=== PATIENT | female | born 1975 | race Caucasian/White ===

== ENCOUNTER → 2023-12-04 07:54 | Outpatient (BNVA) | payer OTHER, SELFPAY | PROVIDERS: Visit Provider Nurse Practitioner Family | DX: J02.9 Acute pharyngitis, unspecified (principal) | CPT/HCPCS: 87400; 87880 ==

== ENCOUNTER 2023-12-08 08:00 | Emergency (ER) | payer OTHER, SELFPAY ==
[2023-12-08 08:04] VITALS: BP 187/87; PULSE 87; RESP 18; TEMP 36.4; O2SAT 96; BMI 39.5
--- NOTE | 2023-12-08 08:18 | ED_ITS ---
HPI - Dizziness 2 General: Chief Complaint: Dizziness Stated Complaint: Dizzy , lighthead Time Seen by Provider: 12/08/23 08:03 Source: patient Mode of arrival: ambulatory Limitations: no limitations History of Present Illness: HPI Narrative: 48-year-old female states she was diagno sed with strep on Monday she had no antibiotics she states she has been having some general malaise and lightheadedness since then. She denies any vomiting she had some slight diarrhea she denies any chest pain. She denies any fevers. Associated symptoms: Reports malaise; Denies chest pain, chills, headache(s), nausea or vomiting Review of Systems 2 Const: Reports: malaise; Denies: fever(s), chills or body aches ENMT: Reports: throat pain; Denies: dental pain Card: Denies: chest pain Resp: Denies: dyspnea GI: Denies: abdominal pain, nausea, vomiting or diarrhea Musc: Denies: neck pain or back pain Skin/Breast: Denies: rash Neuro: Reports: dizziness; Denies: headache(s) Physical Exam 2 Const: COMMON NORMALS: no acute distress, patient oriented x3 and healthy appearing HENMT: COMMON NORMALS: normocephalic and atraumatic HEAD & SCALP: n ormocephalic and atraumatic OTHER: Posterior pharynx erythema no abscess formation handles her secretions well Eye: COMMON NORMALS: conjunctivae normal CONJUNCTIVA: Yes conjunctivae normal Neck/C-Spine: COMMON NORMALS: full ROM and supple Chest: COMMONS NORMALS: normal inspection of the chest and normal palpation of entire chest wall Resp: COMMON NORMALS: normal respiratory effort, No retractions, No use of accessory muscles and clear to auscultation bilaterally AUSCULTATION: clear to auscultation bilaterally Cardio: COMMON NORMALS: regular rate, regular rhythm and No murmurs present (Cardio) RATE: regular rate RHYTHM: regular rhythm Extremity: COMMON NORMALS: normal to inspection and full ROM Neuro: COMMON NORMALS: patient oriented x3, moves all extremities and no focal motor deficits Psych: COMMON NORMALS: mental status grossly normal, Normal thought process present and cooperative THOUGHT PROCESS: Normal thought process present Skin: COMMON NORMALS: no rashes or lesions noted and no wounds GENERAL SKIN EXAM: no rashes or lesions noted Course 2 Vital Signs: Vital signs: Vital Signs Temperature 97.6 F 12/08/23 09:24 Pulse Rate 87 12/08/23 09:24 Respiratory Rate 18 12/08/23 09:24 Blood Pressure 138/92 12/08/23 09:24 Pulse Oximetry 96 12/08/23 09:24 Oxygen Delivery Me thod Room Air 12/08/23 08:04 MDM - Dizziness Medical Decision Making Patient presents here with lightheadedness malaise patient's blood work here is all normal she is recently diagnosed strep she is to continue her antibiotics and give her dose of Decadron IV fluids here she had some mild hypertension here will start on Norvasc she is follow-up with PCP and 4 to 7 days and return if worsening she understands agrees plan Medical Records I reviewed the patient's medical records. Lab Data I reviewed the patient's lab results. 12/08/23 08:22 12/08/23 08:22 Laboratory Results WBC 5.19 10^3/uL (3.29-11.43) 12/08/23 08:22 RBC 4.99 10^6/uL (3.85-5.65) 12/08/23 08:22 Hgb 14.90 g/dL (11.27-16.99) 12/08/23 08:22 Hct 44.8 % (36-47) 12/08/23 08:22 MCV 89.8 fl (85-98) 12/08/23 08:22 MCH 29.9 pg (27-33) 12/08/23 08:22 MCHC 33.3 g/dL (30-55) 12/08/23 08:22 RDW 12.4 % (12.1-15.1) 12/08/23 08:22 Plt Count 213 10^3/cmm (157-399) 12/08/23 08:22 MPV 10.3 fL (7.4-10.4) 12/08/23 08:22 Neut % (Auto) 54.6 % 12/08/23 08:22 Lymph % (Auto) 30.1 % 12/08/23 08:22 [place] % (Auto) 8.1 % 12/08/23 08:22 Eos % (Auto) 6.0 % 12/08/23 08:22 Baso % (Auto) 1.0 % 12/08/23 08:22 Neut # (Auto) 2.84 10^3/uL (1.8-7.7) 12/08/23 08:22 Lymph # (Auto) 1.6 10^3/uL (0.8-4.8) 12/08/23 08:22 [place] # (Auto) 0.4 10^3/uL (0.2-0.9) 12/08/23 08:22 Eos # (Auto) 0.3 10^3/uL (0.0-0.8) 12/08/23 08:22 Baso # (Auto) 0.1 10^3/uL (0.0-0.1) 12/08/23 08:22 Nucleated RBC % (auto) 0 % 12/08/23 08:22 Nucleated RBCs # 0.0 /100WBC 12/08/23 08:22 Sodium 139 mmol/L (136-145) 12/08/23 08:22 Potassium 4.4 mmol/L (3.5-5.1) 12/08/23 08:22 Chloride 104 mmol/L (98-107) 12/08/23 08:22 Carbon Dioxide 23 mmol/L (22-29) 12/08/23 08:22 Anion Gap 16.4 (5-19) 12/08/23 08:22 BUN 12 mg/dL (6-20) 12/08/23 08:22 Creatinine 0.8 mg/dL (0.5-0.9) 12/08/23 08:22 GFR Calculation 77.2 mL/min (90-130) L 12/08/23 08:22 Glucose 103 mg/dL (65-115) 12/08/23 08:22 Calculated Osmolality 288 mOsm/kg (285-295) 12/08/23 08:22 Calcium 8.6 mg/dL (8.5-10.5) 12/08/23 08:22 Total Bilirubin 0.4 mg/dL (0.15-1.2) 12/08/23 08:22 AST 16 U/L (0-32) 12/08/23 08:22 ALT 11 U/L (0-33) 12/08/23 08:22 Alkaline Phosphatase 108 U/L (35-105) H 12/08/23 08:22 Total Protein 7.9 g/dL (6.6-8.7) 12/08/23 08:22 Albumin 4.1 g/dL (3.5-5.2) 12/08/23 08:22 Globulin 3.8 g/dL (1.3-4.6) 12/08/23 08:22 TSH 2.78 uIU/mL (0.27-4.20) 12/08/23 08:22 No radiology studies performed this visit Discharge Plan Discharge Patient Disposition: Home Clinical Impression: Hypertension, Dizziness, Strep throat Condition: Stable Prescriptions: New ondansetron 4 mg tablet,disintegrating 4 mg PO Q6H PRN (Reason: nausea and vomiting) Qty: 14 0RF Norvasc 5 mg tablet 5 mg PO DAILY Qty: 30 0RF No Action amoxicillin 875 mg tablet 875 mg PO BID 7 Days Qty: 14 0RF Rx Instructions: for 7 days (rx filled 12/04/23) Tylenol Ex Str Rapid Release 500 mg Tablet 1,000 mg PO Q6H PRN (Reason: Pain) Discharge Orders: Discharge ED (Routine); Ordered 12/08/23 Ordered By: Brigette Patel Referrals: Nadiya Saunders DO [Primary Care Provider] - 4-7 days Discharge Diet: Advance as tolerated Discharge Activity: Resume usual activity Patient Instructions: Hypertension (ED), Dizziness (ED) Coding Level of Care Code ED Fireworks Display Specialist for Sheila Stiles
[2023-12-08 08:26] LABS: Basophils # 0.1 10^3/uL (0.0-0.1); Eosinophils # 0.3 10^3/uL (0.0-0.8); Hematocrit 44.8 % (36-47); Lymphocytes # 1.6 10^3/uL (0.8-4.8); Lymphocytes % 30.1 %; Mean Corpuscular HGB Conc 33.3 g/dL (30-55); Mean Corpuscular Hemoglobin 29.9 pg (27-33); Mean Corpuscular Volume 89.8 fl (85-98); Mean Platelet Volume 10.3 fL (7.4-10.4); Monocytes # 0.4 10^3/uL (0.2-0.9); Monocytes % 8.1 %; Neutrophils # 2.84 10^3/uL (1.8-7.7); Neutrophils % 54.6 %; Nucleated Red Blood Cells % 0 %; Platelet Count 213 10^3/cmm (157-399); Red Blood Count 4.99 10^6/uL (3.85-5.65); Red Cell Distribution Width 12.4 % (12.1-15.1); White Blood Count 5.19 10^3/uL (3.29-11.43)
[2023-12-08] MEDS: meclizine 25 mg tablet 50 MG PO (08:35)
[2023-12-08] MEDS: dexamethasone 10 mg/mL INJ IVP (08:35)
[2023-12-08] MEDS: sodium chloride 0.9% 1,000 ML 999 ML IV (08:35)
--- NOTE | 2023-12-08 08:35 | PC.PHAR ---
pt states she takes care of her own medications-pt states only takes otc tylenol and is taking her amoxil for 7 days-pt states normally she doesnt take prescription medications
[2023-12-08 08:55] LABS: Alanine Aminotransferase 11 U/L (0-33); Albumin Level 4.1 g/dL (3.5-5.2); Alkaline Phosphatase 108 U/L (35-105); Anion Gap 16.4 (5-19); Aspartate Amino Transferase 16 U/L (0-32); Blood Urea Nitrogen 12 mg/dL (6-20); Calcium 8.6 mg/dL (8.5-10.5); Carbon Dioxide 23 mmol/L (22-29); Chloride 104 mmol/L (98-107); Globulin 3.8 g/dL (1.3-4.6); Glomerular Filtration Rate 77.2 mL/min (90-130); Glucose 103 mg/dL (65-115); Osmolality Calculated 288 mOsm/kg (285-295); Potassium 4.4 mmol/L (3.5-5.1); Sodium 139 mmol/L (136-145); Thyroid Stimulating Hormone 2.78 uIU/mL (0.27-4.20); Total Bilirubin 0.4 mg/dL (0.15-1.2); Total Protein 7.9 g/dL (6.6-8.7)
[2023-12-08 09:24] VITALS: BP 138/92; PULSE 87; RESP 18; TEMP 36.4; O2SAT 96
== END 2023-12-08 09:30 | disposition home or self-care (01) ==
PROVIDERS: Emergency Provider Emergency Medicine; PCP Family Medicine
DX: R42 Dizziness and giddiness (principal); I10 Essential (primary) hypertension; J02.0 Streptococcal pharyngitis
CPT/HCPCS: 80053; 84443; 85025; 96361; 96374; 99284; J1100; J7030; J8597

== ENCOUNTER 2023-12-28 14:55 | Outpatient (CLI) | payer OTHER, SELFPAY ==
[2023-12-28 15:46] LABS: Platelet Count 214 10^3/cmm (157-399)
[2023-12-28 15:47] LABS: Basophils # 0.1 10^3/uL (0.0-0.1); Basophils % 0.8 %; Eosinophils # 0.3 10^3/uL (0.0-0.8); Eosinophils % 4.4 %; Hematocrit 41.2 % (36-47); Lymphocytes # 1.5 10^3/uL (0.8-4.8); Lymphocytes % 25.1 %; Mean Corpuscular Hemoglobin 30.2 pg (27-33); Mean Corpuscular Volume 91.6 fl (85-98); Mean Platelet Volume 10.8 fL (7.4-10.4); Monocytes # 0.5 10^3/uL (0.2-0.9); Monocytes % 8.4 %; Neutrophils # 3.62 10^3/uL (1.8-7.7); Neutrophils % 61.1 %; Nucleated Red Blood Cells % 0 %; Platelet Count 209 10^3/cmm (157-399); Red Cell Distribution Width 12.5 % (12.1-15.1); White Blood Count 5.93 10^3/uL (3.29-11.43)
[2023-12-28 15:58] LABS: Erythrocyte Sedimentation Rate 19 mm/hr (0-15)
[2023-12-28 16:01] LABS: Partial Thromboplastin Time 27.3 SECONDS (23.9-36.7)
[2023-12-28 16:02] LABS: Fibrinogen 450 mg/dL (174-498)
[2023-12-28 16:08] LABS: Estmated Average Glucose 91; Hemoglobin A1C 4.8 % (4.0-6.0)
[2023-12-28 16:46] LABS: Alanine Aminotransferase 12 U/L (0-33); Albumin Level 4.1 g/dL (3.5-5.2); Alkaline Phosphatase 106 U/L (35-105); Anion Gap 15.2 (5-19); Aspartate Amino Transferase 14 U/L (0-32); Blood Urea Nitrogen 12 mg/dL (6-20); Calcium 8.9 mg/dL (8.5-10.5); Carbon Dioxide 23 mmol/L (22-29); Chloride 109 mmol/L (98-107); Chol HDL Ratio 2.73 mg/dL (0.0-4.40); Cholesterol 183 mg/dL (0-200); Globulin 2.5 g/dL (1.3-4.6); Glomerular Filtration Rate 77.2 mL/min (90-130); Glucose 93 mg/dL (65-115); HDL Cholesterol 67 mg/dL (60-100); LDL Cholesterol Calculated 99 mg/dL (50-129); LDL HDL Ratio 1.48 RATIO (0.00-3.22); NT Pro B Type Natriuretic Pept 196 pg/mL (0-125); Osmolality Calculated 295 mOsm/kg (285-295); Potassium 4.2 mmol/L (3.5-5.1); Sodium 143 mmol/L (136-145); Thyroid Stimulating Hormone 2.26 uIU/mL (0.27-4.20); Total Bilirubin 0.4 mg/dL (0.15-1.2); Total Protein 6.6 g/dL (6.6-8.7); Triglycerides 83 mg/dL (0-150)
== END 2023-12-28 14:56 | disposition home or self-care (01) ==
LOC: LAB 14:57
PROVIDERS: PCP Family Medicine; Visit Provider Family Medicine
DX: Z13.6 Encounter for screening for cardiovascular disorders (principal); R60.1 Generalized edema; R06.02 Shortness of breath
CPT/HCPCS: 36415; 80053; 80061; 83036; 83880; 84443; 85025; 85049; 85384; 85610; 85651; 85730; 86140

== ENCOUNTER 2024-01-03 07:51 | Outpatient (CLI) | payer OTHER, SELFPAY ==
--- NOTE | 2024-01-03 08:15 | USCV_ITS ---
Mere Cote Age: 48 Gender: F : 1975 Exam Date: 01/03/2024 08:02 Ordering Phys: Nadiya Saunders DO Technologist: Exam Location: [facility] [place] Indication: sob chest pain BP: 180 / 90 HR: 59 Rhythm: Sinus Technical Quality: Adequate MEASUREMENTS (Male / Female) Normal Values 2D ECHO LV Diastolic Diameter PLAX 4.6 cm 4.2 - 5.9 / 3.9 - 5.3 cm IVS Diastolic Thickness 1.0 cm 0.6 - 1.0 / 0.6 - 0.9 cm IVS Systolic Thickness 1.3 cm LVPW Diastolic Thickness 1.2 cm 0.6 - 1.0 / 0.6 - 0.9 cm LVPW Systolic Thickness 1.9 cm LVOT Diameter 2.0 cm LV Ejection Fraction 2D Teich 65.4 % LV Ejection Fraction MOD 2C 72.9 % LV Ejection Fraction 2C AL 72.1 % LA Diameter 3.9 cm RA Systolic Volume 4C AL 41.4 ml RA Systolic Volume 4C MOD 38.9 ml Aorta at Sinotubular Diameter 2.7 cm IVC Diameter 2.2 cm M-MODE LA Ao Ratio MM 1.3 AV Cusp Separation MM 2.1 cm DOPPLER AV Peak Velocity 173.0 cm/s LVOT Peak Velocity 93.0 cm/s AV Area Cont Eq vti 1.9 cm squared AV Area Cont Eq pk 1.7 cm squared MV Peak Velocity 133.0 cm/s MV Area PHT 6.1 cm squared Mitral E to A Ratio 0.8 TR Peak Velocity 170.0 cm/s TR Peak Gradient 11.6 mmHg TR Mean Velocity 100.0 cm/s TR Mean Gradient 5.3 mmHg TR Velocity Time Integral 31.9 cm TV Peak E Velocity 87.0 cm/s Right Atrial Pressure 3.0 mmHg Pulmonary Artery Systolic Pressu 14.6 mmHg PV Peak Velocity 146.0 cm/s FINDINGS Left Ventricle Diffuse hypokinesia of the left ventricular ejection fraction of around 45% (visual). Mildly dilated LV cavity Right Ventricle The right ventricle is normal in size and function. Right Atrium The right atrium is normal in size. Left Atrium Mildly increased left atrial size. Mitral Valve Thickened mitral valve. Mild mitral valve regurgitation. Aortic Valve No gross abnormalities noted Tricuspid Valve Not visualized well. Pulmonic Valve Not visualized well. Pericardium Normal pericardium without effusion. Aorta Normal aortic annulus size. IVC Normal IVC dimension with <50% respiratory change of the inferior vena cava. CONCLUSIONS Diffuse hypokinesia of the left ventricular ejection fraction of around 45% (visual). Mildly dilated LV cavity. Mildly increased left atrial size. Thickened mitral valve. Mild mitral valve regurgitation. Estimated RA pressure of 8 mmHg There is no pericardial effusion. No similar previous studies are available for comparison Dr Deena Angelo MD [facility] (Electronically Signed) Final Date: 03 January 2024 10:09 S
== END 2024-01-03 07:52 | disposition home or self-care (01) ==
LOC: RAD 07:51
PROVIDERS: PCP Family Medicine; Visit Provider Family Medicine
DX: R79.89 Other specified abnormal findings of blood chemistry (principal); I05.9 Rheumatic mitral valve disease, unspecified; I05.1 Rheumatic mitral insufficiency; R07.9 Chest pain, unspecified
CPT/HCPCS: 93306

== ENCOUNTER 2024-12-24 19:13 | Inpatient (IN) | payer SELFPAY ==
[2024-12-24] VITALS (50 sets, daily range): BP systolic 120–158; BP diastolic 70–94; PULSE 73–93; RESP 12–23; TEMP 36.6; O2SAT 96–100; BMI 47.9
--- NOTE | 2024-12-24 19:15 | ECG_ITS ---
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 Measurements Intervals [place] Rate: 84 P: 53 CO: 166 QRS: 6 QRSD: 141 T: 15 QT: 386 QTc: 458 Interpretive Statements SINUS RHYTHM LEFT BUNDLE BRANCH BLOCK [120+ ms QRS DURATION, 80+ ms Q/S IN V1/V2, 85+ ms R IN I/aVL/V5/V6] INTERPRETATION BASED ON A DEFAULT AGE OF 40 YEARS No previous ECG available for comparison Electronically Signed On 12-27-2024 19:13:43 CDT by Bharat Arce M.D. [email or web address]
--- NOTE | 2024-12-24 19:15 | XRR_ITS ---
PROCEDURE INFORMATION: Exam: XR Chest Exam date and time: 12/24/2024 8:17 PM Age: 49 years old Clinical indication: Chest pressure and chest wall pain; Additional info: Cp TECHNIQUE: Imaging protocol: Radiologic exam of the chest. Views: 1 view. COMPARISON: No relevant prior studies available. FINDINGS: Lungs: There are hazy perihilar and lower lobe opacities. Findings may represent pneumonia or pulmonary edema. Pleural spaces: Probable small pleural effusions. Heart/Mediastinum: Cardiomegaly. Bones/joints: No acute fracture. XR/XR chest 1V portable [id number] IMPRESSION: 1. There are hazy perihilar and lower lobe opacities. Findings may represent pneumonia or pulmonary edema. 2. Probable small pleural effusions.
--- NOTE | 2024-12-24 19:36 | USCV_ITS ---
Mere Cote Age: 49 Gender: F : 1975 Exam Date: 12/24/2024 19:46 Ordering Phys: Rosalina Pereira MD Technologist: ROSE [place]am Location[place] [facility] [place] Indication: chest pain, LBBB BP: 177 / 98 HR: 81 Rhythm: Sinus Arrhythmia - LBBB Technical Quality: Adequate MEASUREMENTS (Male / Female) Normal Values 2D ECHO LV Diastolic Diameter PLAX 5.5 cm 4.2 - 5.9 / 3.9 - 5.3 cm IVS Diastolic Thickness 1.1 cm 0.6 - 1.0 / 0.6 - 0.9 cm IVS Systolic Thickness 1.3 cm LVPW Diastolic Thickness 1.3 cm 0.6 - 1.0 / 0.6 - 0.9 cm LVPW Systolic Thickness 2.1 cm LVOT Diameter 2.1 cm LV Ejection Fraction 2D Teich 60.6 % LV Ejection Fraction MOD 4C 58.9 % LV Ejection Fraction MOD 2C 57.2 % LV Ejection Fraction 2C AL 57.2 % LA Diameter 3.7 cm LA Sys Volume AL 67.3 cm cubed LA Sys Volume Index AL 24.7 cm cubed/m squared Aorta at Sinotubular Diameter 2.5 cm IVC Diameter 1.8 cm M-MODE LA Ao Ratio MM 1.7 AV Cusp Separation MM 1.8 cm DOPPLER AV Peak Velocity 190.0 cm/s LVOT Peak Velocity 120.0 cm/s AV Area Cont Eq vti 2.4 cm squared AV Area Cont Eq pk 2.2 cm squared MV Peak Velocity 151.0 cm/s MV Area PHT 4.5 cm squared Mitral E to A Ratio 1.0 TR Peak Velocity 288.0 cm/s TR Peak Gradient 33.2 mmHg TV Peak E Velocity 52.0 cm/s PV Peak Velocity 162.0 cm/s FINDINGS Left Ventricle Normal left ventricular size, systolic function and wall thickness, with no regional wall motion abnormalities. Left ventricular ejection fraction is estimated at 58 %. There appeared to be septal bounce which could be secondary to conduction abnormality in the presence of bundle branch block .Normal diastolic function. Right Ventricle The right ventricle is normal in size and function. Right Atrium The right atrium is normal in size. Left Atrium The left atrium is normal in size. Mitral Valve Mildly thickened mitral valve. No mitral valve stenosis. Moderate mitral valve regurgitation. Aortic Valve Structurally normal aortic valve without significant sclerosis or stenosis. There is no aortic regurgitation. Tricuspid Valve Structurally normal tricuspid valve without significant stenosis or regurgitation. Pulmonary artery systolic pressure is normal. Pulmonic Valve Structurally normal pulmonic valve without significant stenosis. There is no pulmonic regurgitation. Pericardium Normal pericardium without effusion. Aorta Normal ascending aorta dimension. IVC The inferior vena cava appears normal. CONCLUSIONS Normal left ventricular size, systolic function and wall thickness, with no regional wall motion abnormalities. Left ventricular ejection fraction is estimated at 58 %. There appeared to be septal bounce which could be secondary to conduction abnormality in the presence of bundle branch block .Normal diastolic function. Mildly thickened mitral valve. No mitral valve stenosis. Moderate mitral valve regurgitation. There is no pericardial effusion. Right atrial pressure is around 5 mm of mercury. Deb Segura MD (Electronically Signed) Final Date: 24 December 2024 22:38 S
--- NOTE | 2024-12-24 19:38 | ED_ITS ---
HPI - Chest Pain 2 General: Chief Complaint: Chest Pain Stated Complaint: Dr Trivedi sent Chest Pain Time Seen by Provider: 12/24/24 19:30 History of Present Illness: 49-year-old female with a history of hyp ertension and obesity who presents to the emergency room with chest pain. She said she started having this pain today at about 4 has gone away. She feels like she needs to belch. She describes a sharp pain in her epigastric central chest area. She said she has been having some episodes of this over the last few days. At 1 point she had some pain going up the right side of her neck and into her arm. Her initial EKG shows a left bundle branch block and she says she does not know anything about ever having had this. She did have an echo almost exactly a year ago. But she has no previous EKGs on file. No nausea or vomiting. No diaphoresis. Related Data Home Medications ?Medication ?Instructions ?Recorded ?Confirmed acetaminophen 500 mg tablet 1,000 mg PO Q6H PRN Pain 0 12/08/23 12/24/24 Previous Rx's ?Medication ?Instructions ?Recorded spironolactone 25 mg tablet 25 mg PO DAILY #30 tabs valsartan 80 mg tablet 80 mg PO DAILY #30 tabs 12/15 11/08 cephalexin 500 mg capsule 500 mg PO BID 10 days #20 ca ps 01/10/24 clindamycin HCl 300 mg capsule 600 mg (2 x 300 mg) PO TID 10 days 01/13/24 #60 caps ibuprofen 800 mg tablet 800 mg PO Q8H PRN pain #30 t abs 01/13/24 Allergies Allergy/AdvReac Type Severity Reaction Status Date / Time No Known Allergies Allergy Verified 12/24/24 19:41 Review of Systems 2 Narrative: Constitutional symptoms: Negative except as documented in HPI. Skin symptoms: Negative except as documented in HPI. Eye symptoms: Negative except as documented in HPI. ENMT symptoms: Negative except as documented in HPI. Respiratory symptoms: Negative except as documented in HPI. Cardiovascular symptoms: Negative except as documented in HPI. Gastrointestinal symptoms: Negative except as documented in HPI. Genitourinary symptoms: Negative except as documented in HPI. Musculoskeletal symptoms: Negative except as documented in HPI. Neurologic symptoms: Negative except as documented in HPI. Psychiatric symptoms: Negative except as documented in HPI. Endocrine symptoms: Negative except as documented in HPI. PFSH ED 2 PFSH: Medical History History of vaginal delivery x 3 Vasovagal syncope Surgical History History of cholecystectomy Family History Mother Acquired lymphedema Father Congestive heart failure (CHF), Onset Age: 40 Social History Smoking and tobacco/nicotine status: never used tobacco/nicotine Alcohol intake: never Substance/Drug Use: never Household members: spouse and children Housing: House Highest education level completed: High School Graduate Physical Exam 2 Narrative: EXAM NARRATIVE: General: Alert, no acute distress. Skin: Warm, dry. Head: Normocephalic, atraumatic. Neck: Supple, trachea midline. Eye: Extraocular movements are intact. Ears, nose, mouth and throat: mucosa moist. Cardiovascular: Regular, Normal peripheral perfusion. Respiratory: Lungs are clear to auscultation, respirations are non-labored, breath sounds are equal, Symmetrical chest wall expansion. Gastrointestinal: Soft, Nontender, Non distended Musculoskeletal: Normal ROM, no deformity. Neurological: Alert and oriented, No focal neurological deficit observed. Psychiatric: Cooperative, appropriate mood & affect. Course 2 Vital Signs: Vital signs: Vital Signs Temperature 97.9 F 12/24/24 19:37 Pulse Rate 86 12/24/24 23:45 Respiratory Rate 20 H 12/24/24 23:45 Blood Pressure 150/78 12/24/24 23:45 Pulse Oximetry 96 12/24/24 23:45 Oxygen Delivery Me thod Room Air 12/24/24 20:02 MDM - Chest Pain Medical Decision Making Differential diagnosis for patient with chest pain includes but is not limited to and based on the above HPI, review of systems and physical exam: Pneumonia. unstable angina. angina. Acute coronary syndrome / [place]. Pulmonary embolism. Costochondritis / musculoskeletal. Pleurisy. Pericarditis. Esophageal spasm. Pancreatis. Cholecystitis. Orders placed to evaluate differential diagnosis based on the above differential, HPI and physical exam EKG: Time 1920. Rate 84. Normal sinus rhythm, No ST-T changes, no ectopy, left bundle branch block, This was reviewed and interpreted by myself the ER physician at 1924. No previous EKGs on file. No known left bundle branch block. Chest x-ray: No acute process. No infiltrate. No pneumothorax. Films were interpreted by myself the emergency room provider and pending final radiology review. Consultation: Given that this could be a new left bundle branch block I consulted Dr. Segura with cardiology. He recommends a stat echo and cardiac markers. Lab Review: Laboratory results were reviewed and interpreted by myself the emergency room physician. No leukocytosis. No anemia. No renal failure. Initial troponin is mildly elevated at 25. Repeat has a significant delta of 29 and is 54. D-dimer was negative. I reviewed the patient's medical record. Reexamination: Patient remained stable. No increased work of breathing. No altered mental status. No focal motor deficits. Patient reports improvement in her chest pain with nitroglycerin. She also has improvement in her blood pressure. Consultation: I spoke with Dr. Monsivais who is on-call for the hospitalist service who agrees to admission. Assessment and plan: Chest pain Left bundle branch block Elevated D-dimer Hypertension ?P.o. aspirin and sublingual nitroglycerin. -I discussed the patient with the hospitalist on-call who is admitting the patient. - Discussed findings and plan with patient. Answered any questions. - All laboratory values were reviewed and interpreted personally by myself, the ER physician - All imaging was reviewed and interpreted personally by myself, the ER physician. - Evaluation and treatment of this problem were appropriate in the emergency setting Lab Data 12/24/24 20:27 12/24/24 19:57 Laboratory Results WBC 8.29 10^3/uL (3.29-11.43) 12/24/24 20: RBC 4.48 10^6/uL (3.85-5.65) 12/24/24 20: Hgb 13.30 g/dL (11.27-16.99) 12/24/24 20:27 Hct 41.3 % (36-47) 12/24/24 20:27 MCV 92.2 fl (85-98) 12/24/24 20: MCH 29.7 pg (27-33) 12/24/24 20: MCHC 32.2 g/dL (30-55) 12/24/24 20: RDW 12.2 % (12.1-15.1) 12/24/24 20: Plt Count 218 10^3/cmm (157-399) 12/24/24 20: MPV 10.6 fL (7.4-10.4) H 12/24/24 20: Neut % (Auto) 66.8 % 12/24/24 20: Lymph % (Auto) 21.7 % 12/24/24 20: [place] % (Auto) 6.6 % 12/24/24 20: Eos % (Auto) 4.1 % 12/24/24 20: Baso % (Auto) 0.6 % 12/24/24: Neut # (Auto) 5.53 10^3/uL (1.8-7.7) 12/24/24 20: Lymph # (Auto) 1.8 10^3/uL (0.8-4.8) 12/24/24 20: [place] # (Auto) 0.6 10^3/uL (0.2-0.9) 12/24/24 20: Eos # (Auto) 0.3 10^3/uL (0.0-0.8) 12/24/24 20: Baso # (Auto) 0.1 10^3/uL (0.0-0.1) 12/24/24 20: Nucleated RBC % (auto) 0 % 12/24/24: Nucleated RBCs # 0.0 /100WBC 12/24/24 20: D-Dimer 0.55 ug/mLFEU (0-0.59) 12/24/24 20:27 Sodium 140 mmol/L (136-145) 12/24/24 19:57 Potassium 4.1 mmol/L (3.5-5.1) 12/24/24 19:57 Chloride 106 mmol/L (98-107) 12/24/24 19:57 Carbon Dioxide 22 mmol/L (22-29) 12/24/24 19:57 Anion Gap 16.1 (5-19) 12/24/24 19:57 BUN 12 mg/dL (6-20) 12/24/24 19:57 Creatinine 1.0 mg/dL (0.5-0.9) H 12/24/24 19:57 GFR Calculation 59.4 mL/min (90-130) L 12/24/24 19:57 Glucose 94 mg/dL (65-115) 12/24/24 19:57 Calculated Osmolality 290 mOsm/kg (285-295) 12/24/24 19:57 Calcium 8.9 mg/dL (8.5-10.5) 12/24/24 19:57 Total Bilirubin 0.2 mg/dL (0.15-1.2) 12/24/24 19:57 AST 15 U/L (0-32) 12/24/24 19:57 ALT 13 U/L (0-33) 12/24/24 19:57 Alkaline Phosphatase 94 U/L (35-105) 12/24/24 19:57 Troponin T Baseline 25 ng/L (0-10) H 12/24/24 20:27 Troponin T 120 Minute 53.59 ng/L (0-10) H 12/24/24 22:43 Delta Troponin T 28.59 ABS# (0-10) H* 12/24/24 22:43 NT-Pro-B Natriuret Pep 179 pg/mL (0-125) H 12/24/24 19:57 Total Protein 6.9 g/dL (6.6-8.7) 12/24/24 19:57 Albumin 3.8 g/dL (3.5-5.2) 12/24/24 19:57 Globulin 3.1 g/dL (1.3-4.6) 12/24/24 19:57 Lipase 41 U/L (13-60) 12/24/24 19:57 XR interpretation done by ED provider, pending radiology final review Discharge Plan Discharge Patient Disposition: Placed in Observation Clinical Impression: Chest pain, Elevated troponin, Left bundle branch block, Hypertension Coding Level of Care Code ED Glass Cleaner for Sheila Stiles
[2024-12-24] MEDS: nitroglycerin 0.4 mg sublingual Tablet SUBLINGUAL (19:49)
[2024-12-24] MEDS: aspirin 81 mg Chew Tablet 324 MG PO (19:49)
[2024-12-24 20:43] LABS: Basophils # 0.1 10^3/uL (0.0-0.1); Basophils % 0.6 %; Eosinophils # 0.3 10^3/uL (0.0-0.8); Eosinophils % 4.1 %; Hematocrit 41.3 % (36-47); Lymphocytes # 1.8 10^3/uL (0.8-4.8); Lymphocytes % 21.7 %; Mean Corpuscular HGB Conc 32.2 g/dL (30-55); Mean Corpuscular Hemoglobin 29.7 pg (27-33); Mean Corpuscular Volume 92.2 fl (85-98); Mean Platelet Volume 10.6 fL (7.4-10.4); Monocytes # 0.6 10^3/uL (0.2-0.9); Monocytes % 6.6 %; Neutrophils # 5.53 10^3/uL (1.8-7.7); Neutrophils % 66.8 %; Nucleated Red Blood Cells % 0 %; Platelet Count 218 10^3/cmm (157-399); Red Blood Count 4.48 10^6/uL (3.85-5.65); Red Cell Distribution Width 12.2 % (12.1-15.1); White Blood Count 8.29 10^3/uL (3.29-11.43)
[2024-12-24 21:00] LABS: Alanine Aminotransferase 13 U/L (0-33); Albumin Level 3.8 g/dL (3.5-5.2); Alkaline Phosphatase 94 U/L (35-105); Aspartate Amino Transferase 15 U/L (0-32); Blood Urea Nitrogen 12 mg/dL (6-20); Calcium 8.9 mg/dL (8.5-10.5); Carbon Dioxide 22 mmol/L (22-29); Chloride 106 mmol/L (98-107); Creatinine Clr Calc Pharmacy 108.3503; Globulin 3.1 g/dL (1.3-4.6); Glomerular Filtration Rate 59.4 mL/min (90-130); Glucose 94 mg/dL (65-115); Lipase 41 U/L (13-60); NT Pro B Type Natriuretic Pept 179 pg/mL (0-125); Osmolality Calculated 290 mOsm/kg (285-295); Sodium 140 mmol/L (136-145); Total Bilirubin 0.2 mg/dL (0.15-1.2); Total Protein 6.9 g/dL (6.6-8.7)
[2024-12-24 21:02] LABS: Anion Gap 16.1 (5-19); Potassium 4.1 mmol/L (3.5-5.1)
[2024-12-24 21:04] LABS: Troponin(5th) Baseline 25 ng/L (0-10)
[2024-12-24 23:07] LABS: Troponin 5 2HR 53.59 ng/L (0-10)
[2024-12-24 23:13] LABS: Troponin 5 2HR Delta 28.59 ABS# (0-10)
--- NOTE | 2024-12-24 23:24 | PM.HP ---
Providers/Chief Complaint Primary Care Provider: Fermin Trivedi MD Chief Complaint: Dr Trivedi sent Chest Pain History of Present Illness Mere Cote is a 49 year old female with history of lymphedema, hypertension, morbid obesity, present to the hospital with chief complaint of chest pain. Patient stating that she returned from work around 4 PM since then she has been experiencing chest discomfort which she describing as sharp stabbing pain going towards her back, it got better with nitroglycerin which was given in the ER, patient went to her PCP first who recommended her to go to the ER for further evaluation, her EKG showed left bundle branch block, cardiology recommended serial troponin and echo, echo did not show any wall motion abnormality, we do not have previous EKGs to compare. She is not complaining of active chest pain at the time of evaluation, she is hypertensive. Stating that she stopped taking her medications a year ago because of insurance lapse. Now she is working full-time and insurance will kick in in next 2 weeks. Patient does not smoke or drink alcohol. Not active for her age. Patient is stating that she can take a nap anytime, never got sleep study done. Currently saturating well on room air. Patient is stating that before her chest pain she was experiencing numbness medial side of her right hand which was radiating towards her elbow and then right side of the neck. Considering delta troponin I have started her on non-STEMI protocol. Cardiology is on board, will keep her n.p.o. for evaluation in the morning by the primary care pediatrician for her typical anginal symptoms and new left bundle branch block with rising troponin Review of Systems Const: Denies: chills Eyes: Denies: change in vision ENMT: Denies: throat pain Card: Reports: chest pain Resp: Reports: dyspnea GI: Reports: nausea : Denies: flank pain Medications/Allergies Home Medications ?Medication ?Instructions ?Recorded ?Confirmed ?Last Taken ?Type acetaminophen 500 mg tablet 1,000 mg PO Q6H PRN Pain 12/08/23 12/24/24 12/06/23 History spironolactone 25 mg tablet 25 mg PO DAILY #30 tabs 01/04/24 12/24/24 Unknown Rx valsartan 80 mg tablet 80 mg PO DAILY #30 tabs 01/04/24 12/24/24 Unknown Rx cephalexin 500 mg capsule 500 mg PO BID 10 days #20 caps 01/10/24 12/24/24 Unknown Rx clindamycin HCl 300 mg capsule 600 mg (2 x 300 mg) PO TID 10 days 01/13/24 12/24/24 Unknown Rx #60 caps ibuprofen 800 mg tablet 800 mg PO Q8H PRN pain #30 tabs 01/13/24 12/24/24 Unknown Rx Allergies Allergy/AdvReac Type Severity Reaction Status Date / Time No Known Allergies Allergy Verified 12/24/24 19:41 PFSH Acute PFSH: Medical History History of vaginal delivery x 3 Vasovagal syncope Surgical History History of cholecystectomy Family History Mother Acquired lymphedema Father Congestive heart failure (CHF), Onset Age: 40 Social History Smoking and tobacco/nicotine status: never used tobacco/nicotine Alcohol intake: never Substance/Drug Use: never Household members: spouse and children Housing: House Highest education level completed: High School Graduate Vitals/I&O/Wt Last Vital Signs Temp 97.9 F 12/24/24 19:37 Pulse 84 12/24/24 23:10 Resp 18 12/24/24 23:10 BP 120/77 12/24/24 23:10 Pulse Ox 97 12/24/24 23:10 O2 Del Method Room Air 12/24/24 20:02 12/24/24 12/24/24 12/25/24 14:59 22:59 06:59 Intake Total 0 / 0 Balance 0 / 0 Weight last 48 hrs Weight 147.418 kg Physical Exam Narrative: Lymphedema Nonpitting edema of legs and extremities GCS 15 AOx4 S1, S2 Nonfocal neuroexam No murmur appreciated Currently on room air No active chest pain Pleasant and cooperative Morbid obese Family at the bedside Data 12/24/24 20:27 12/24/24 19:57 A&P Assessment and plan (1) Non-STEMI (non-ST elevated myocardial infarction): (2) Acute coronary syndrome: (3) Left bundle branch block: (4) Hypertension: Plan Acute coronary syndrome Non-STEMI Start therapeutic Lovenox Loading dose of aspirin given, will give aspirin 81 mg along loading dose of Plavix Start therapeutic dose of Lovenox along atorvastatin Echo reviewed New left bundle branch block with rising troponin and active chest pain, patient may need coronary angiogram, cardiology is consulted we will follow-up with the recommendation in the morning Untreated long-term hypertension Patient stopped taking her antihypertensive regimen of year ago Optimization of current evidence of regimen indicated At this point continue losartan, added hydrochlorothiazide, continue (branch block would avoid AV mackenzie blocking agent and secondary to lymphedema would avoid amlodipine Check hemoglobin A1c and lipid panel Possible untreated sleep apnea as well patient endorsing lethargy fatigue, sedentary lifestyle Right hand numbness could be sign of carpal tunnel Full code N.p.o. GI prophylaxis Protonix PDMP PDMP Reviewed: Not Reviewed Attestations Medical Necessity Statement*: More than 2 midnights anticipated for manage evaluation of new left branch block chest pain acute coronary syndrome Diagnoses Non-STEMI (non-ST elevated myocardial infarction) I21.4 Acute coronary syndrome I24.9 Left bundle branch block I44.7 Hypertension I10
[2024-12-24 23:54] LABS: D Dimer 0.55 ug/mLFEU (0-0.59)
[2024-12-25] VITALS (45 sets, daily range): BP systolic 115–160; BP diastolic 60–92; PULSE 68–94; RESP 11–20; TEMP 36.6; O2SAT 94–100
[2024-12-25 00:18] LABS: Chol HDL Ratio 2.83 mg/dL (0.0-4.40); Cholesterol 178 mg/dL (0-200); HDL Cholesterol 63 mg/dL (60-100); LDL Cholesterol Calculated 95 mg/dL (50-129); LDL HDL Ratio 1.51 RATIO (0.00-3.22); Thyroid Stimulating Hormone 5.81 uIU/mL (0.27-4.20); Triglycerides 101 mg/dL (0-150)
[2024-12-25 00:32] LABS: Estmated Average Glucose 97
[2024-12-25] MEDS: clopidogrel 300 mg Tablet PO (00:42)
--- NOTE | 2024-12-25 01:15 | ECG_ITS ---
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
[2024-12-25 02:38] LABS: Basophils # 0.1 10^3/uL (0.0-0.1); Basophils % 0.7 %; Eosinophils # 0.4 10^3/uL (0.0-0.8); Eosinophils % 4.3 %; Hematocrit 41.9 % (36-47); Lymphocytes # 2.4 10^3/uL (0.8-4.8); Lymphocytes % 26.6 %; Mean Corpuscular HGB Conc 32.2 g/dL (30-55); Mean Corpuscular Hemoglobin 29.3 pg (27-33); Mean Corpuscular Volume 91.1 fl (85-98); Mean Platelet Volume 10.6 fL (7.4-10.4); Monocytes # 0.7 10^3/uL (0.2-0.9); Monocytes % 7.9 %; Neutrophils # 5.34 10^3/uL (1.8-7.7); Neutrophils % 60.3 %; Nucleated Red Blood Cells % 0 %; Platelet Count 224 10^3/cmm (157-399); Red Cell Distribution Width 12.4 % (12.1-15.1); White Blood Count 8.85 10^3/uL (3.29-11.43)
[2024-12-25 02:59] LABS: Anion Gap 15.3 (5-19); Blood Urea Nitrogen 13 mg/dL (6-20); Calcium 8.9 mg/dL (8.5-10.5); Carbon Dioxide 25 mmol/L (22-29); Chloride 104 mmol/L (98-107); Creatinine Clr Calc Pharmacy 108.3503; Glomerular Filtration Rate 59.4 mL/min (90-130); Glucose 100 mg/dL (65-115); Magnesium 1.8 mg/dL (1.7-2.3); Osmolality Calculated 290 mOsm/kg (285-295); Potassium 4.3 mmol/L (3.5-5.1); Sodium 140 mmol/L (136-145); Troponin 5 6HR 112.5 ng/L (0-10)
[2024-12-25 03:00] LABS: Troponin 5 6HR Delta 87.5 ng/L (0-12)
--- NOTE | 2024-12-25 06:40 | PC.NURSE ---
Weight Patient stated that she does not want her weight taken or displayed where others can see it. Voiced understanding and assured patient that her weight would remain confidential.
--- NOTE | 2024-12-25 08:11 | PC.PHAR ---
Pt last filled medications in December of 2023. She states she no longer takes any medications.
[2024-12-25] MEDS: clopidogrel 75 mg Tablet PO (09:57)
[2024-12-25] MEDS: losartan 50 mg Tablet 25 MG PO (09:57)
[2024-12-25] MEDS: aspirin 81 mg EC Tablet PO (09:57)
[2024-12-25] MEDS: hydroCHLOROthiazide 25 mg Tablet PO (09:58)
[2024-12-25] MEDS: pantoprazole 40 mg SDV IVP ×2 (09:58→20:22)
[2024-12-25] MEDS: atorvastatin 40 mg Tablet 80 MG PO (09:58)
[2024-12-25] MEDS: enoxaparin 150 mg/mL Syringe SUBCUT ×2 (09:58→20:22)
--- NOTE | 2024-12-25 10:45 | P.CONIM_ITS ---
<Statement entered by Deb Segura MD - 12/28/24 18:18> Patient was evaluated and cared for in conjunction with an advanced practice practitioner. I personally examined the patient and reviewed the chart and all pertinent data including imaging, telemetry, and laboratory results. I discussed the patient in detail with the advanced practice practitioner. Please see their note for complete H&P testing result and agreed upon plan of care for the patient. 49-year-old female past medical history significant for uncontrolled hypertension obesity left bundle branch block without any prior comparison. She has elevated troponin however echocardiogram showed normal ejection fraction no wall motion abnormality. Currently chest pain-free. GENERAL: Patient is alert, awake and oriented x3. HEART: Regular S1 and S2. No murmur, rub or gallop. LUNGS: Clear to auscultate bilaterally. CENTRAL NERVOUS SYSTEM: Grossly nonfocal. EXTREMITIES: Lower extremities with out edema bilaterally. Chest pain Obesity Left bundle branch block Elevated cardiac marker Continue aspirin statin beta-brandan Proceed with Lexiscan MIBI stress test Providers/Reason For Consult 2 Consulting Physician/Specialty*: Deb Segura MD Reason for Consult*: Chest pain, NSTEMI Requesting Physician: Dr. Monsivais Attending Physician: Niko Vela MD Primary Care Provider: Fermin Trivedi MD History of Present Illness History of Present Illness Mere Cote is a 49 year old female who came into the emergency room yesterday for an episode of chest pain. She states she was just sitting in her chair and developed sharp pain at the center of her chest that radiated to the back. She states she has never had this happen before. She states it lasted until she got to the hospital in which she was given nitro and her pain was relieved. She denies any aggravating factors. She did say that the sharp pain ran down her neck and into her right side of her arm. She denies any history of coronary artery disease or significant cardiac issues. Denies diabetes. Reports history of hypertension. Denies any family history of coronary artery disease. Denies any smoking or alcohol use. EKG showed left bundle branch block. She denies any chest pain at this time. Denies any shortness of breath as well. Troponins were elevated at 25?50 3.59?112.5. Creatinine currently stable at 1 although baseline is 0.8. Review of Systems 2 Narrative: Consitutional: denies fever, chills, body aches, or changes in appetite, denies abnormal weight loss Eyes: Denies changes in vision Card: Denies chest pain, palpitations, irregular heart rhythm, edema, syncope, shortness of breath, orthopnea, leg pain with exertion Resp: Denies shortness of breath, denies hemoptysis, denies cough GI: denies abdominal pain, denies nausea or voimting, denies blood in stool : denies blood in urine, denies dysuria Musc: Denies extremity pain, denies limited range of motion or recent injury Skin: Denies rash, lesions, or wounds, denies changes to skin color Neuro: Denies nubmness in extremities, h/a, s/s of stroke Rambo: Denies easy bruiding/bleeding Medications/Allergies Home Medications ?Medication ?Instructions ?Recorded ?Confirmed ?Last Taken ?Type No Known Home Medications 12/25/2412/14 Unknown History Allergies Allergy/AdvReac Type Severity Reaction Status Date / Time No Known Allergies Allergy Verified 12/24/24 19:41 Current Medications Generic Name Dose Route Start Last Admin Trade Name Freq PRN Reason Stop Dose Admin Aspirin 81 mg 12/25/24 09:00 12/25/24 09:57 Aspirin 81 Mg Ec Tablet PO 81 mg DAILY DEISY Administration Atorvastatin Calcium 80 mg 12/25/24 09:00 12/25/24 09:58 Atorvastatin 40 Mg Tablet PO 80 mg DAILY DEISY Administration Clopidogrel Bisulfate 75 mg 12/25/24 09:00 12/25/24 09:57 Clopidogrel 75 Mg Tablet PO 75 mg DAILY DEISY Administration Enoxaparin Sodium 150 mg 12/25/24 09:00 12/25/24 09:58 Enoxaparin 150 Mg/Ml Syringe SUBCUT 150 mg BID@0900,2100 DEISY Administration Losartan Potassium 25 mg 12/25/24 09:00 12/25/24 09:57 Losartan 50 Mg Tablet PO 25 mg DAILY DEISY Administration Pantoprazole Sodium 40 mg 12/25/24 09:00 12/25/24 09:58 Pantoprazole 40 Mg Sdv IVP 40 mg BID DEISY Administration PFSH Acute 2 PFSH: Medical History History of vaginal delivery x 3 Vasovagal syncope Surgical History History of cholecystectomy Family History Mother Acquired lymphedema Father Congestive heart failure (CHF), Onset Age: 40 Social History Smoking and tobacco/nicotine status: never used tobacco/nicotine Alcohol intake: never Substance/Drug Use: never Household members: spouse and children Housing: House Highest education level completed: High School Graduate Vitals/I&O/Wt Last Vital Signs Temp 97.9 F 12/25/24 08:00 Pulse 77 12/25/24 09:21 Resp 15 12/25/24 09:21 BP 160/92 12/25/24 09:57 Pulse Ox 97 12/25/24 09:21 O2 Del Method Room Air 12/25/24 09:21 12/24/24 12/25/24 12/25/24 22:59 06:59 14:59 Intake Total 0 / 0 Balance 0 / 0 Weight last 48 hrs Weight 325 lb Weight 325 lb Physical Exam 2 Narrative: General: No apparent distress, healthy appearing, well nourished HENMT: normoceophalic Neck: No carotid bruit bilaterally Muskuloskeletal: Full ROM Lymphatic: no lymphedema noted Respiratory: Normal respiratory effort, clear to auscultation bilaterally throughout all lung marcum, no use of accessory muscles Cardio: No JVD, regular rate, regular rhythm, S1 S2 normal, no murmurs, peripheral pulses 2+ radial palpated bilaterally GI: Normal to inspection, nondistended Extremities: Full ROM, normal, normal capillary refill, no cyanosis or edema Neuro: Alert and oriented x4, no focal motor deficits Psych: Affect normal, denies suicidal ideation, mental status grossly normal Skin: No rashes or lesions noted, no wounds Data 12/25/24 02:20 12/25/24 02:20 A&P Assessment and plan (1) Chest pain: Qualifiers: Chest pain type: unspecified Qualified Code(s): R07.9 - Chest pain, unspecified (2) Elevated troponin: (3) Left bundle branch block: (4) Hypertension: Qualifiers: Hypertension type: primary hypertension Qualified Code(s): I10 - Essential (primary) hypertension (5) Non-STEMI (non-ST elevated myocardial infarction): Plan At this time patient is chest pain-free. EF was normal w/o wall motion abnormalities. Due to left bundle branch block, history of chest pain, signs and symptoms of typical and atypical chest pain we will proceed with a lexiscan stress test. If this is abnormal, patient will need left heart cath. Patient did drink caffeine and cannot do this until tomorrow. Will keep her n.p.o. after midnight. Continue to monitor for new EKG changes or s/s of chest pain. At this time, she is stable. BP is elevated. May need to increase losartan depending on creatinine response. Will continue to monitor this. Thank you for allowing us to care for this very pleasant 49 year old female. PDMP PDMP Reviewed: Not Reviewed Coding Level of Care Code Acute Code for g Fwd Diagnoses Chest pain, unspecified type R07.9 Chest pain type: unspecified Elevated troponin R79.89 Left bundle branch block I44.7 Primary hypertension I10 Hypertension type: primary hypertension Non-STEMI (non-ST elevated myocardial infarction) I21.4
[2024-12-25 13:39] LABS: Troponin T (5th) Once 60 ng/L (0-10)
--- NOTE | 2024-12-25 15:17 | P.PN_ITS ---
Subjective 2 Subjective: Patient was seen this morning, denies any chest pain, no nausea, no vomiting, no lightheadedness, Vitals/I&O/Wt Last Vital Signs Temp 97.8 F 12/25/24 14:00 Pulse 90 12/25/24 14:00 Resp 20 H 12/25/24 14:00 BP 135/79 12/25/24 14:00 Pulse Ox 96 12/25/24 14:00 O2 Del Method Room Air 12/25/24 14:00 12/25/24 12/25/24 12/25/24 06:59 14:59 22:59 Intake Total 950 / 950 Balance 950 / 950 Weight last 48 hrs Weight 147.418 kg Weight 147.418 kg Physical Exam 2 Const: COMMON NORMALS: no acute distress and patient oriented x3 Resp: COMMON NORMALS: normal respiratory effort, No retractions, No use of accessory muscles and clear to auscultation bilaterally AUSCULTATION: clear to auscultation bilaterally Cardio: COMMON NORMALS: regular rate, regular rhythm, S1 normal heart sound present and S2 normal heart sound present RATE: regular rate RHYTHM: r egular rhythm HEART SOUNDS: S1 normal heart sound present and S2 normal heart sound present GI: COMMON NORMALS: Normal to inspection, nondistended, normoactive bowel sounds present and non-tender Extremity: COMMON NORMALS: no pedal edema Neuro: COMMON NORMALS: patient oriented x3 Psych: COMMON NORMALS: mental status grossly normal Data 12/25/24 02:20 12/25/24 02:20 A&P Assessment and plan (1) Non-STEMI (non-ST elevated myocardial infarction): (2) Acute coronary syndrome: (3) Left bundle branch block: (4) Hypertension: Qualifiers: Hypertension type: primary hypertension Qualified Code(s): I10 - Essential (primary) hypertension Plan Acute coronary syndrome Plan Non-STEMI Therapeutic Lovenox Aspirin, statin, Plavix Echo CONCLUSIONS Normal left ventricular size, systolic function and wall thickness, with no regional wall motion abnormalities. Left ventricular ejection fraction is estimated at 58 %. There appeared to be septal bounce which could be secondary to conduction abnormality in the presence of bundle branch block .Normal diastolic function. Mildly thickened mitral valve. No mitral valve stenosis. Moderate mitral valve regurgitation. There is no pericardial effusion. Right atrial pressure is around 5 mm of mercury. Plan -N.p.o. midnight -Cardiac stress test tomorrow morning -Cardiology consulted Left bundle branch block, as above Untreated long-term hypertension Continue losartan Possible sleep apnea, follow-up with outpatient physician for sleep study Full code N.p.o. midnight, currently on cardiac diet GI prophylaxis Protonix PDMP PDMP Reviewed: Not Reviewed Attestations 2 Medical Necessity Statement*: Patient requires hospitalization for ACS, chest pain, NSTEMI Diagnoses Non-STEMI (non-ST elevated myocardial infarction) I21.4 Acute coronary syndrome I24.9 Left bundle branch block I44.7 Primary hypertension I10 Hypertension type: primary hypertension
--- NOTE | 2024-12-25 18:43 | PC.NURSE ---
Shift summary: Pt did not report chest pain or dizziness this shift. First degree block, LBBB noted on monitor. She was started on BP meds . SBP was 170's now 140's. She is able to walk without assistance. She has been up to restroom several times. BM noted this shift. She does not like meals provided. Family has been in to visit and brings her food to eat. She has not had any caffeine this shift. Carenotes for all the new medications provided.
[2024-12-26] VITALS (18 sets, daily range): BP systolic 111–162; BP diastolic 59–92; PULSE 72–103; RESP 12–23; TEMP 36.5–36.8; O2SAT 93–98
--- NOTE | 2024-12-26 | ECG_ITS ---
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
--- NOTE | 2024-12-26 02:40 | PC.NURSE ---
Transfer Transferred patient to C[facility] room 108. All belongings taken with patient. CSU staff at bedside. Patient voiced no complaints.
[2024-12-26 03:50] LABS: Basophils # 0.1 10^3/uL (0.0-0.1); Basophils % 0.9 %; Eosinophils # 0.3 10^3/uL (0.0-0.8); Hematocrit 39.4 % (36-47); Lymphocytes # 1.9 10^3/uL (0.8-4.8); Lymphocytes % 29.7 %; Mean Corpuscular HGB Conc 32.7 g/dL (30-55); Mean Corpuscular Hemoglobin 30.1 pg (27-33); Mean Corpuscular Volume 91.8 fl (85-98); Mean Platelet Volume 10.5 fL (7.4-10.4); Monocytes # 0.5 10^3/uL (0.2-0.9); Monocytes % 8.2 %; Neutrophils # 3.66 10^3/uL (1.8-7.7); Nucleated Red Blood Cells % 0 %; Platelet Count 194 10^3/cmm (157-399); Red Blood Count 4.29 10^6/uL (3.85-5.65); Red Cell Distribution Width 12.5 % (12.1-15.1); White Blood Count 6.43 10^3/uL (3.29-11.43)
[2024-12-26 04:27] LABS: Anion Gap 11.7 (5-19); Blood Urea Nitrogen 12 mg/dL (6-20); Calcium 8.6 mg/dL (8.5-10.5); Carbon Dioxide 26 mmol/L (22-29); Chloride 105 mmol/L (98-107); Glomerular Filtration Rate 67.1 mL/min (90-130); Glucose 99 mg/dL (65-115); NT Pro B Type Natriuretic Pept 108 pg/mL (0-125); Osmolality Calculated 288 mOsm/kg (285-295); Potassium 3.7 mmol/L (3.5-5.1); Sodium 139 mmol/L (136-145)
[2024-12-26 06:02] LABS: HCG Quantitative 1.84 mIU/mL
[2024-12-26] MEDS: regadenoson 0.4 Mg/5 ml Syringe IVP (07:46)
--- NOTE | 2024-12-26 08:34 | PC.NURSE ---
Patient off the floor to L.
--- NOTE | 2024-12-26 08:49 | NMCV_ITS ---
NM brnia perf SPECT r/s* [id number] Rocael Mere Age: 49 Gender: F : 1975 Exam Date: 12/26/2024 06:58 Ordering Phys: Pam Leroy NP Technologist: JUAN Main Exam Location: [facility] Indications: CP STRESS TEST Please see separate stress test report in [facility] for full findings IMAGE PROTOCOL Rest/Stress 1 Lexiscan Day Radiopharmaceutical Dose (mCi) Administration Site Administered by Rest: Tc-99m 10.9 IV Cece Anna, SALES REPRESENTATIVE [employer] Sestamibi Stress:Tc-99m 33 IV Cece Anna, SALES REPRESENTATIVE [employer] Sestamibi Rest: 26-Dec-2024 60 Discovery 630 Stress: 26-Dec-2024 30 Discovery 630 0.4mg Lexiscan. Supine position only as patient was unable to lay prone. SPECT RESULTS Technical Quality: Good Raw Data Analysis: Breast attenuation, Soft tissue attenuation Image Corrections: No attenuation or motion correction applied Summed Stress Score: 13 Summed Rest Score: 7 Summed Difference Score: 7 PERFUSION FINDINGS Large area of fixed perfusion defect noted in basal to distal anterior and anteroseptal wall showing mild to moderate reversibility suggestive of possible old myocardial infarction surrounded by mild to moderate ischemia. Medium sized area of fixed perfusion defect noted in mid to distal inferior wall surrounded by medium sized area of moderate to severe reversibility suggestive of old myocardial infarction surrounded by ischemia in RCA territory. In the absence of wall motion abnormality and prone images cannot rule out breast and gut attenuation artifact. Overall this study appeared to be positive for ischemia clinical correlation advised. FUNCTIONAL RESULTS (calculated via Gated SPECT) Stress Image LV EF (%): 55 Stress EDV (mL):170 TID: 0.93 Stress ESV (mL):76 FUNCTIONAL FINDINGS: There is normal left ventricular systolic function. IMPRESSIONS Large area of fixed perfusion defect noted in basal to distal anterior and anteroseptal wall showing mild to moderate reversibility suggestive of possible old myocardial infarction surrounded by mild to moderate ischemia. Medium sized area of fixed perfusion defect noted in mid to distal inferior wall surrounded by medium sized area of moderate to severe reversibility suggestive of old myocardial infarction surrounded by ischemia in RCA territory. In the absence of wall motion abnormality and prone images cannot rule out breast and gut attenuation artifact. Overall this study appeared to be positive for ischemia clinical correlation advised. Deb Segura MD (Electronically Signed) Final Date: 26 December 2024 10:04 S
[2024-12-26] MEDS: acetaminophen 500 mg Tablet PO (09:12)
[2024-12-26] MEDS: losartan 50 mg Tablet 25 MG PO (09:12)
[2024-12-26] MEDS: clopidogrel 75 mg Tablet PO (09:13)
[2024-12-26] MEDS: atorvastatin 40 mg Tablet 80 MG PO (09:13)
[2024-12-26] MEDS: aspirin 81 mg EC Tablet PO (09:13)
[2024-12-26] MEDS: pantoprazole 40 mg SDV IVP ×2 (09:13→17:40)
[2024-12-26] MEDS: enoxaparin 150 mg/mL Syringe SUBCUT ×2 (09:22→21:36)
--- NOTE | 2024-12-26 11:03 | P.PN_ITS ---
Subjective 2 Subjective: Stress test was done this morning. It was abnormal. Will need to proceed with left heart cath. Overall patient denies any chest pain or shortness of breath at this time. Creatinine stable at 0.9. Vitals/I&O/Wt Last Vital Signs Temp 97.8 F 12/25/24 14:00 Pulse 81 12/26/24 07:55 Resp 12 12/26/24 06:00 BP 140/92 12/26/24 09:12 Pulse Ox 93 12/26/24 02:00 O2 Del Method Room Air 12/25/24 18:00 12/25/24 12/26/24 12/26/24 22:59 06:59 14:59 Intake Total 1180 / 2130 Balance 1180 / 2130 Weight last 48 hrs Weight 325 lb Weight 325 lb Physical Exam 2 Narrative: General: No apparent distress, healthy appearing, well nourished HENMT: normoceophalic Neck: No carotid bruit bilaterally Muskuloskeletal: Full ROM Lymphatic: no lymphedema noted Respiratory: Normal respiratory effort, clear to auscultation bilaterally throughout all lung macrum, no use of accessory muscles Cardio: No JVD, regular rate, regular rhythm, S1 S2 normal, no murmurs, peripheral pulses 2+ radial palpated bilaterally GI: Normal to inspection, nondistended Extremities: Full ROM, normal, normal capillary refill, no cyanosis or edema Neuro: Alert and oriented x4, no focal motor deficits Psych: Affect normal, denies suicidal ideation, mental status grossly normal Skin: No rashes or lesions noted, no wounds Data 12/26/24 03:28 12/26/24 03:28 A&P Assessment and plan (1) Chest pain: Qualifiers: Chest pain type: unspecified Qualified Code(s): R07.9 - Chest pain, unspecified (2) Elevated troponin: (3) Left bundle branch block: (4) Hypertension: Qualifiers: Hypertension type: primary hypertension Qualified Code(s): I10 - Essential (primary) hypertension (5) Non-STEMI (non-ST elevated myocardial infarction): Plan Patient stress test was abnormal. She will need a left heart cath possible PCI. I discussed this with her. She agrees to proceed. We will plan on doing this tomorrow afternoon sometime. She will be n.p.o. after midnight. PDMP PDMP Reviewed: Not Reviewed Attestations 2 Medical Necessity Statement*: Deferred to primary Coding Level of Care Code Acute Code for Chg Fwd Diagnoses Chest pain, unspecified type R07.9 Chest pain type: unspecified Elevated troponin R79.89 Left bundle branch block I44.7 Primary hypertension I10 Hypertension type: primary hypertension Non-STEMI (non-ST elevated myocardial infarction) I21.4
[2024-12-26] MEDS: TRAMadol 50 mg Tablet PO (11:34)
--- NOTE | 2024-12-26 12:40 | ECG_ITS ---
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 Measurements Intervals [place] Rate: 65 P: 56 TN: 174 QRS: 20 QRSD: 150 T: 3 QT: 454 QTc: 474 Interpretive Statements SINUS RHYTHM LEFT BUNDLE BRANCH BLOCK [120+ ms QRS DURATION, 80+ ms Q/S IN V1/V2, 85+ ms R IN I/aVL/V5/V6] Compared to ECG 12/25/2024 01:54:13 No significant changes Electronically Signed On 12-27-2024 19:23:25 CDT by Bharat Arce M.D. [id number] [id number]
--- NOTE | 2024-12-26 12:47 | P.PN_ITS ---
Subjective 2 Subjective: Patient was seen this morning, no chest pain overnight, denies any shortness of breath she is status post stress testing, Vitals/I&O/Wt Last Vital Signs Temp 97.8 F 12/25/24 14:00 Pulse 81 12/26/24 07:55 Resp 12 12/26/24 06:00 BP 140/92 12/26/24 09:12 Pulse Ox 93 12/26/24 02:00 O2 Del Method Room Air 12/25/24 18:00 12/25/24 12/26/24 12/26/24 22:59 06:59 14:59 Intake Total 1180 / 2130 Balance 1180 / 2130 Weight last 48 hrs Weight 147.418 kg Weight 147.418 kg Physical Exam 2 Const: COMMON NORMALS: no acute distress and patient oriented x3 Resp: COMMON NORMALS: normal respiratory effort, No retractions, No use of accessory muscles and clear to auscultation bilaterally AUSCULTATION: clear to auscultation bilaterally Cardio: COMMON NORMALS: regular rate, regular rhythm, S1 normal heart sound present and S2 normal heart sound present RATE: regular rate RHYTHM: r egular rhythm HEART SOUNDS: S1 normal heart sound present and S2 normal heart sound present GI: COMMON NORMALS: Normal to inspection, nondistended, normoactive bowel sounds present and non-tender Extremity: COMMON NORMALS: no pedal edema Neuro: COMMON NORMALS: patient oriented x3 Psych: COMMON NORMALS: mental status grossly normal Data 12/26/24 03:28 12/26/24 03:28 A&P Assessment and plan (1) Non-STEMI (non-ST elevated myocardial infarction): (2) Acute coronary syndrome: (3) Left bundle branch block: (4) Hypertension: Qualifiers: Hypertension type: primary hypertension Qualified Code(s): I10 - Essential (primary) hypertension Plan Acute coronary syndrome Plan Non-STEMI Therapeutic Lovenox Aspirin, statin, Plavix Echo CONCLUSIONS Normal left ventricular size, systolic function and wall thickness, with no regional wall motion abnormalities. Left ventricular ejection fraction is estimated at 58 %. There appeared to be septal bounce which could be secondary to conduction abnormality in the presence of bundle branch block .Normal diastolic function. Mildly thickened mitral valve. No mitral valve stenosis. Moderate mitral valve regurgitation. There is no pericardial effusion. Right atrial pressure is around 5 mm of mercury. Plan -Cardiac stress test today, -Cardiology consulted Left bundle branch block, as above Untreated long-term hypertension Continue losartan Possible sleep apnea, follow-up with outpatient physician for sleep study Full code N.p.o. midnight, currently on cardiac diet GI prophylaxis Protonix Patient requires hospitalization for chest pain PDMP PDMP Reviewed: Not Reviewed Attestations 2 Medical Necessity Statement*: Patient requires hospitalization for chest pain Diagnoses Non-STEMI (non-ST elevated myocardial infarction) I21.4 Acute coronary syndrome I24.9 Left bundle branch block I44.7 Primary hypertension I10 Hypertension type: primary hypertension
--- NOTE | 2024-12-26 12:48 | ECG_ITS ---
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 Measurements Intervals [place] Rate: 70 P: 57 [place]: 178 QRS: 22 QRSD: 149 T: -3 QT: 446 QTc: 484 Interpretive Statements SINUS RHYTHM LEFT BUNDLE BRANCH BLOCK [120+ ms QRS DURATION, 80+ ms Q/S IN V1/V2, 85+ ms R IN I/aVL/V5/V6] Compared to ECG 12/25/2024 01:54:13 No significant changes Electronically Signed On 12-27-2024 19:05:40 CDT by Bharat Arce M.D. [id number] [id number]
[2024-12-26 16:34] LABS: Troponin(5th) Baseline 55 ng/L (0-10)
--- NOTE | 2024-12-26 18:26 | ECG_ITS ---
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 Measurements Intervals [place] Rate: 76 P: 146 [place]: 161 QRS: -15 QRSD: 146 T: -29 QT: 426 QTc: 481 Interpretive Statements SINUS RHYTHM INTRAVENTRICULAR CONDUCTION DELAY [130+ ms QRS DURATION] Compared to ECG 12/26/2024 13:44:59 Intraventricular conduction delay now present Left bundle-branch block no longer present Electronically Signed On 12-27-2024 19:20:51 CDT by Bharat Arce M.D. [id number] [id number]
[2024-12-26 21:01] LABS: Troponin 5 6HR 54.28 ng/L (0-10)
[2024-12-26 21:02] LABS: Troponin 5 6HR Delta -0.72 ng/L (0-12)
[2024-12-27] VITALS (13 sets, daily range): BP systolic 118–162; BP diastolic 61–89; PULSE 62–84; RESP 12–18; TEMP 36.6–36.8; O2SAT 92–100; BMI 47.9
[2024-12-27 03:57] LABS: Basophils % 0.6 %; Eosinophils # 0.2 10^3/uL (0.0-0.8); Eosinophils % 2.4 %; Hematocrit 40.2 % (36-47); Lymphocytes # 1.5 10^3/uL (0.8-4.8); Lymphocytes % 21.8 %; Mean Corpuscular HGB Conc 33.3 g/dL (30-55); Mean Corpuscular Volume 89.9 fl (85-98); Mean Platelet Volume 10.5 fL (7.4-10.4); Monocytes # 0.4 10^3/uL (0.2-0.9); Monocytes % 6.1 %; Neutrophils # 4.79 10^3/uL (1.8-7.7); Nucleated Red Blood Cells % 0 %; Platelet Count 170 10^3/cmm (157-399); Red Blood Count 4.47 10^6/uL (3.85-5.65); Red Cell Distribution Width 12.3 % (12.1-15.1); White Blood Count 6.94 10^3/uL (3.29-11.43)
[2024-12-27 04:28] LABS: Anion Gap 16.1 (5-19); Blood Urea Nitrogen 11 mg/dL (6-20); Calcium 8.5 mg/dL (8.5-10.5); Carbon Dioxide 23 mmol/L (22-29); Chloride 103 mmol/L (98-107); Glomerular Filtration Rate 76.9 mL/min (90-130); Glucose 98 mg/dL (65-115); NT Pro B Type Natriuretic Pept 73 pg/mL (0-125); Osmolality Calculated 285 mOsm/kg (285-295); Potassium 4.1 mmol/L (3.5-5.1); Sodium 138 mmol/L (136-145)
[2024-12-27] MEDS: atorvastatin 40 mg Tablet 80 MG PO (07:58)
[2024-12-27] MEDS: aspirin 81 mg EC Tablet PO (07:58)
[2024-12-27] MEDS: losartan 50 mg Tablet 25 MG PO (07:58)
[2024-12-27] MEDS: clopidogrel 75 mg Tablet PO (07:58)
[2024-12-27] MEDS: pantoprazole 40 mg SDV IVP (07:59)
--- NOTE | 2024-12-27 08:07 | PC.NURSE ---
patient no given am dose of lovenox due to scheduled cardiac angiogram today. Dr Segura is aware.
--- NOTE | 2024-12-27 10:28 | PM.PN ---
Subjective Subjective: Patient doing well this morning. Denies any chest pain or shortness of breath. Patient had questions about left heart cath exam. All questions were answered accordingly. Vitals/I&O/Wt Last Vital Signs Temp 97.8 F 12/27/24 07:57 Pulse 84 12/27/24 07:57 Resp 18 12/27/24 00:00 BP 145/88 12/27/24 07:58 Pulse Ox 95 12/27/24 04:00 O2 Del Method Room Air 12/27/24 04:00 Weight last 48 hrs Weight 325 lb 1 oz Physical Exam Narrative: General: No apparent distress, healthy appearing, well nourished HENMT: normoceophalic Neck: No carotid bruit bilaterally Muskuloskeletal: Full ROM Lymphatic: no lymphedema noted Respiratory: Normal respiratory effort, clear to auscultation bilaterally throughout all lung marcum, no use of accessory muscles Cardio: No JVD, regular rate, regular rhythm, S1 S2 normal, no murmurs, peripheral pulses 2+ radial palpated bilaterally GI: Normal to inspection, nondistended Extremities: Full ROM, normal, normal capillary refill, no cyanosis or edema Neuro: Alert and oriented x4, no focal motor deficits Psych: Affect normal, denies suicidal ideation, mental status grossly normal Skin: No rashes or lesions noted, no wounds Data 12/27/24 03:20 12/27/24 03:20 A&P Assessment and plan (1) Chest pain: Qualifiers: Chest pain type: unspecified Qualified Code(s): R07.9 - Chest pain, unspecified (2) Elevated troponin: (3) Left bundle branch block: (4) Hypertension: Qualifiers: Hypertension type: primary hypertension Qualified Code(s): I10 - Essential (primary) hypertension (5) Non-STEMI (non-ST elevated myocardial infarction): Plan Patient will be getting a heart cath today. She is doing well without complaints. All questions were answered to patient satisfactory PDMP PDMP Reviewed: Not Reviewed Attestations Medical Necessity Statement*: Deferred to primary. Coding Level of Care Code [facility] Diagnoses Chest pain, unspecified type R07.9 Chest pain type: unspecified Elevated troponin R79.89 Left bundle branch block I44.7 Primary hypertension I10 Hypertension type: primary hypertension Non-STEMI (non-ST elevated myocardial infarction) I21.4
[2024-12-27] MEDS: sodium chloride 0.9% 1,000 ML 50 ML IV (12:18)
[2024-12-27] MEDS: diphenhydrAMINE 50 mg Capsule PO (12:18)
--- NOTE | 2024-12-27 13:31 | P.PN_ITS ---
Subjective 2 Subjective: Patient was seen this morning, she had results of chest pain yesterday afternoon, denies any chest pain overnight, no shortness of breath, no lightheadedness, we discussed the risks and benefits of coronary angiography, she voiced understanding, all questions answered, shared decision making, agreed to proceed, plans on coronary angiography this afternoon Vitals/I&O/Wt Last Vital Signs Temp 98.2 F 12/27/24 12:00 Pulse 75 12/27/24 12:00 Resp 18 12/27/24 10:00 BP 161/88 12/27/24 12:00 Pulse Ox 95 12/27/24 10:00 O2 Del Method Room Air 12/27/24 10:00 Weight last 48 hrs Weight 147.446 kg Physical Exam 2 Const: COMMON NORMALS: no acute distress and patient oriented x3 Resp: COMMON NORMALS: normal respiratory effort, No retractions, No use of accessory muscles and clear to auscultation bilaterally AUSCULTATION: clear to auscultation bilaterally Cardio: COMMON NORMALS: regular rate, regular rhythm, S1 normal heart sound present and S2 normal heart sound present RATE: regular rate RHYTHM: r egular rhythm HEART SOUNDS: S1 normal heart sound present and S2 normal heart sound present GI: COMMON NORMALS: Normal to inspection, nondistended, normoactive bowel sounds present and non-tender Extremity: COMMON NORMALS: no pedal edema Neuro: COMMON NORMALS: patient oriented x3 Psych: COMMON NORMALS: mental status grossly normal Data 12/27/24 03:20 12/27/24 03:20 A&P Assessment and plan (1) Non-STEMI (non-ST elevated myocardial infarction): (2) Acute coronary syndrome: (3) Left bundle branch block: (4) Hypertension: Qualifiers: Hypertension type: primary hypertension Qualified Code(s): I10 - Essential (primary) hypertension Plan Acute coronary syndrome Plan Non-STEMI Therapeutic Lovenox Aspirin, statin, Plavix Echo CONCLUSIONS Normal left ventricular size, systolic function and wall thickness, with no regional wall motion abnormalities. Left ventricular ejection fraction is estimated at 58 %. There appeared to be septal bounce which could be secondary to conduction abnormality in the presence of bundle branch block .Normal diastolic function. Mildly thickened mitral valve. No mitral valve stenosis. Moderate mitral valve regurgitation. There is no pericardial effusion. Right atrial pressure is around 5 mm of mercury. -Cardiac stress test IMPRESSIONS Large area of fixed perfusion defect noted in basal to distal anterior and anteroseptal wall showing mild to moderate reversibility suggestive of possible old myocardial infarction surrounded by mild to moderate ischemia. Medium sized area of fixed perfusion defect noted in mid to distal inferior wall surrounded by medium sized area of moderate to severe reversibility suggestive of old myocardial infarction surrounded by ischemia in RCA territory. In the absence of wall motion abnormality and prone images cannot rule out breast and gut attenuation artifact. Overall this study appeared to be positive for ischemia clinical correlation advised. Plan -Cardiology consulted ? Plan on coronary angiography ? Continue aspirin, statin, Plavix, therapeutic Lovenox Left bundle branch block, as above Untreated long-term hypertension Continue losartan Possible sleep apnea, follow-up with outpatient physician for sleep study Full code N.p.o. midnight, currently on cardiac diet GI prophylaxis Protonix Patient requires hospitalization for chest pain PDMP PDMP Reviewed: Not Reviewed Attestations 2 Medical Necessity Statement*: Patient requires hospitalization for CAD, proceeding with coronary angiography Diagnoses Non-STEMI (non-ST elevated myocardial infarction) I21.4 Acute coronary syndrome I24.9 Left bundle branch block I44.7 Primary hypertension I10 Hypertension type: primary hypertension
--- NOTE | 2024-12-27 14:28 | W.PM.OPSUD ---
Surgery/Procedure H&P Update DATE OF PROCEDURE: December 27, 2024 DATE H&P PERFORMED: 12/25/24 PRIMARY INDICATION FOR PROCEDURE: Chest pain/abnormal stress test PLANNED PROCEDURE: Operation Date: 12/27/24 13:00 Proposed Procedures p Cardiac Catheterization(Left) - Deb Segura MD PATIENT REASSESSED PRIOR TO SEDATION, WITH NO CHANGE NOTED: Yes PHYSICAL EXAM: alert, oriented x 3, clear to auscultation bilaterally, regular rate & rhythm and operative site marked AIRWAY EVAL/ANESTHESIA PLAN: ASA II, Risks, benefits & alternatives of sedation and/or procedure discussed and Patient agrees to continue as planned
--- NOTE | 2024-12-27 15:32 | PM.DCS ---
Discharge Providers Date of Admission: 12/24/24 23:46 Date of Discharge: December 27, 2024 Attending Provider at Admission: Deb Monsivais MD Attending Provider at Discharge: Niko Vela MD Primary Care Provider: Fermin Trivedi MD Diagnoses at Discharge Discharge Diagnosis (1) Non-STEMI (non-ST elevated myocardial infarction): Status: Resolved (2) Acute coronary syndrome: Status: Resolved (3) Left bundle branch block: Status: Resolved (4) Hypertension: Status: Acute Qualifiers: Hypertension type: primary hypertension Qualified Code(s): I10 - Essential (primary) hypertension Reason for Visit Reason for Visit: Dr Trivedi sent Chest Pain Hospital Course Hospital Course This is a 49-year-old female with past medical history of lymphedema, hypertension, obesity who presents [facility] for chest pain Patient presented to [facility] for acute coronary syndrome Non-STEMI Received therapeutic Lovenox Received aspirin, statin, Plavix Echo CONCLUSIONS Normal left ventricular size, systolic function and wall thickness, with no regional wall motion abnormalities. Left ventricular ejection fraction is estimated at 58 %. There appeared to be septal bounce which could be secondary to conduction abnormality in the presence of bundle branch block .Normal diastolic function. Mildly thickened mitral valve. No mitral valve stenosis. Moderate mitral valve regurgitation. There is no pericardial effusion. Right atrial pressure is around 5 mm of mercury. -Cardiac stress test IMPRESSIONS Large area of fixed perfusion defect noted in basal to distal anterior and anteroseptal wall showing mild to moderate reversibility suggestive of possible old myocardial infarction surrounded by mild to moderate ischemia. Medium sized area of fixed perfusion defect noted in mid to distal inferior wall surrounded by medium sized area of moderate to severe reversibility suggestive of old myocardial infarction surrounded by ischemia in RCA territory. In the absence of wall motion abnormality and prone images cannot rule out breast and gut attenuation artifact. Overall this study appeared to be positive for ischemia clinical correlation advised. -Cardiology consulted ? Underwent coronary angiography, no obstructive clinically significant CAD ? Discharged with close follow-up with cardiology as outpatient, if any recurrent chest pain, emergency room, discharged losartan Physical Exam Const: COMMON NORMALS: no acute distress and patient oriented x3 Resp: COMMON NORMALS: normal respiratory effort, No retractions, No use of accessory muscles and clear to auscultation bilaterally AUSCULTATION: clear to auscultation bilaterally Cardio: COMMON NORMALS: regular rate, regular rhythm, S1 normal heart sound present and S2 normal heart sound present RATE: regular rate RHYTHM: regular rhythm HEART SOUNDS: S1 normal heart sound present and S2 normal heart sound present GI: COMMON NORMALS: Normal to inspection, nondistended, normoactive bowel sounds present and non-tender Extremity: COMMON NORMALS: no pedal edema Neuro: COMMON NORMALS: patient oriented x3 Psych: COMMON NORMALS: mental status grossly normal Discharge Data Studies Completed and Pending Completed Studies During Hospitalization Category Date Time Status Cardiac Stress Test MIBI [Sestamibi Stress Test Request Exams 12/26/24 07:00 Draft ] Routine XR chest 1V portable [id number] Stat Exams 12/24/24 19:15 Completed NM brina perf SPECT r/s* [id number] Routine Nuc Med 12/26/24 08:49 Completed CV. echo complete* [id number] Stat Ultrasound 12/24/24 19:36 Completed Pending at discharge Category Date Time Status DIRECTOR SURFACE TRANSPORTATION request for service Routine Exams 12/27/24 13:00 Ordered Cardiac Stress Test MIBI [Sestamibi Stress Test Request Exams 12/25/24 10:46 Ordered ] Routine Basic Metabolic Panel AM LABS Lab 12/28/24 04:00 Ordered Complete Blood Count w/Auto AM LABS Lab 12/28/24 04:00 Ordered NT Pro B Type Natriuretic Pept QAM Lab 12/28/24 06:00 Ordered Radiology Impressions Chest X-Ray 12/24/24 19:15 IMPRESSION: 1. There are hazy perihilar and lower lobe opacities. Findings may represent pneumonia or pulmonary edema. 2. Probable small pleural effusions. Laboratory Results WBC 6.94 10^3/uL (3.29-11.43) 12/27/24 03:20 RBC 4.47 10^6/uL (3.85-5.65) 12/27/24 03:20 Hgb 13.40 g/dL (11.27-16.99) 12/27/24 03:20 Hct 40.2 % (36-47) 12/27/24 03:20 MCV 89.9 fl (85-98) 12/27/24 03:20 MCH 30.0 pg (27-33) 12/27/24 03:20 MCHC 33.3 g/dL (30-55) 12/27/24 03:20 RDW 12.3 % (12.1-15.1) 12/27/24 03:20 Plt Count 170 10^3/cmm (157-399) 12/27/24 03:20 MPV 10.5 fL (7.4-10.4) H 12/27/24 03:20 Neut % (Auto) 69.0 % 12/27/24 03:20 Lymph % (Auto) 21.8 % 12/27/24 03:20 [place] % (Auto) 6.1 % 12/27/24 03:20 Eos % (Auto) 2.4 % 12/27/24 03:20 Baso % (Auto) 0.6 % 12/27/24 03:20 Neut # (Auto) 4.79 10^3/uL (1.8-7.7) 12/27/24 03:20 Lymph # (Auto) 1.5 10^3/uL (0.8-4.8) 12/27/24 03:20 [place] # (Auto) 0.4 10^3/uL (0.2-0.9) 12/27/24 03:20 Eos # (Auto) 0.2 10^3/uL (0.0-0.8) 12/27/24 03:20 Baso # (Auto) 0.0 10^3/uL (0.0-0.1) 12/27/24 03:20 Nucleated RBC % (auto) 0 % 12/27/24 03:20 Nucleated RBCs # 0.0 /100WBC 12/27/24 03:20 D-Dimer 0.55 ug/mLFEU (0-0.59) 12/24/24 20:27 Sodium 138 mmol/L (136-145) 12/27/24 03:20 Potassium 4.1 mmol/L (3.5-5.1) 12/27/24 03:20 Chloride 103 mmol/L (98-107) 12/27/24 03:20 Carbon Dioxide 23 mmol/L (22-29) 12/27/24 03:20 Anion Gap 16.1 (5-19) 12/27/24 03:20 BUN 11 mg/dL (6-20) 12/27/24 03:20 Creatinine 0.8 mg/dL (0.5-0.9) 12/27/24 03:20 GFR Calculation 76.9 mL/min (90-130) L 12/27/24 03:20 Glucose 98 mg/dL (65-115) 12/27/24 03:20 Estimat Average Glucose 97 12/24/24 20:27 Hemoglobin A1c 5.0 % (4.0-6.0) 12/24/24 20:27 Calculated Osmolality 285 mOsm/kg (285-295) 12/27/24 03:20 Calcium 8.5 mg/dL (8.5-10.5) 12/27/24 03:20 Magnesium 1.8 mg/dL (1.7-2.3) 12/25/24 02:20 Total Bilirubin 0.2 mg/dL (0.15-1.2) 12/24/24 19:57 AST 15 U/L (0-32) 12/24/24 19:57 ALT 13 U/L (0-33) 12/24/24 19:57 Alkaline Phosphatase 94 U/L (35-105) 12/24/24 19:57 Troponin T 5th Gen ng/L 60 ng/L (0-10) H 12/25/24 12:25 Troponin T Baseline 55 ng/L (0-10) H 12/26/24 15:56 Troponin T 120 Minute 53.59 ng/L (0-10) H 12/24/24 22:43 Delta Troponin T 28.59 ABS# (0-10) H* 12/24/24 22:43 Troponin T Hi Sens 6Hr 54.28 ng/L (0-10) H 12/26/24 20:37 Troponin T Hi Sens 6Hr Delta -0.72 ng/L (0-12) L 12/26/24 20:37 NT-Pro-B Natriuret Pep 73 pg/mL (0-125) 12/27/24 03:20 Total Protein 6.9 g/dL (6.6-8.7) 12/24/24 19:57 Albumin 3.8 g/dL (3.5-5.2) 12/24/24 19:57 Globulin 3.1 g/dL (1.3-4.6) 12/24/24 19:57 Triglycerides 101 mg/dL (0-150) 12/24/24 22:43 Cholesterol 178 mg/dL (0-200) 12/24/24 22:43 LDL Cholesterol, Calc 95 mg/dL (50-129) 12/24/24 22:43 HDL Cholesterol 63 mg/dL (60-100) 12/24/24 22:43 LDL/HDL Ratio 1.51 RATIO (0.00-3.22) 12/24/24 22:43 Cholesterol/HDL Ratio 2.83 mg/dL (0.0-4.40) 12/24/24 22:43 Lipase 41 U/L (13-60) 12/24/24 19:57 TSH 5.81 uIU/mL (0.27-4.20) H 12/24/24 22:43 Ser , Semi-Qnt 1.84 mIU/mL 12/26/24 03:28 Vitals Last Vital Signs Temp 98.2 F 12/27/24 12:00 Pulse 75 12/27/24 12:00 Resp 18 12/27/24 10:00 BP 161/88 12/27/24 12:00 Pulse Ox 95 12/27/24 10:00 O2 Del Method Room Air 12/27/24 10:00 Discharge Plan Discharge Patient Disposition: Home Condition: Stable Prescriptions: New losartan 50 mg Tablet 25 mg PO DAILY 30 Days Qty: 15 0RF Discharge Orders: Discharge Order (Routine); Ordered 12/27/24 Ordered By: Niko Vela Referrals: Pam Leroy NP [Nurse Practitioner] - 01/15/25 2:30 pm Fermin Trivedi MD [Primary Care Provider] - (We have notified your physician's clinic of the need for a follow-up appointment to be scheduled. If you have not heard from them within the next 2 business days, please call them directly. ) Discharge Diet: Cardiac Discharge Activity: Resume usual activity Patient Instructions: Losartan (By mouth), Heart Attack (DC), Acute Coronary Syndrome (DC), Heart Block (DC), Chronic Hypertension (DC), Opioid Safety, Post Angiogram Home Care Instructions Discharge Attestations Time Spent in Discharge Care*: greater than 30 min Quality Metrics Clinical Quality Measures [ No reported AMI, CVA or VTE this stay] Coding Level of Care Code 14556 Total time (in minutes) for Discharge: 45 Diagnoses Non-STEMI (non-ST elevated myocardial infarction) I21.4 Acute coronary syndrome I24.9 Left bundle branch block I44.7 Primary hypertension I10 Hypertension type: primary hypertension
--- NOTE | 2024-12-27 16:04 | PC.NURSE ---
Patient received from cath s/p [facility] with attempted right radial access and tr band in place. Patient did have successful access to right groin. 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 No s/s of bleeding or hematoma formation to either site. Instructed patient on site care and restrictions. Patient verbalized complete understanding. Will continue to monitor.
--- NOTE | 2024-12-27 17:00 | PC.NURSE ---
Completed TR band removal. No s/s of bleeding or hematoma formation observed. Covered site with 2x2 and coban. Right groin dressing remains c,d,i without s/s of bleeding or hematoma formation observed. Assisted patient into left lateral position. Sites remain good. Instructed patient on site care and restrictions. Patient has demonstrated complete understanding.
--- NOTE | 2024-12-27 17:29 | PM.PROC ---
Procedure Note: Date of procedure: 12/27/24 Pre-procedure diagnosis: Abnormal stress test Post-procedure diagnosis: same Procedure: Left heart catheter was performed: Abnormal stress test Normal coronaries Left main is normal LAD is normal LCx is normal RCA is nondominant small caliber vessel which is normal Most likely it was a falsely positive stress test secondary to body habitus and not having prone images No further cardiac assessment needed Once complete bedrest patient can be discharged home after 5 hours Coding Level of Care Code Acute Code for [facility]
== END 2024-12-27 20:12 | disposition home or self-care (01) | DRG 281 ==
LOC: ER 23:45 → ICU 12-25 01:58 → CSU 12-26 02:32
PROVIDERS: Emergency Medicine; Internal Medicine Cardiovascular Disease; Admitting Provider Internal Medicine; Emergency Provider Emergency Medicine; PCP Family Medicine; Visit Provider Family Medicine
DX: I21.4 Non-ST elevation (NSTEMI) myocardial infarction (principal); Z68.42 Body mass index [BMI] 45.0-49.9, adult; I24.9 Acute ischemic heart disease, unspecified; I44.7 Left bundle-branch block, unspecified; I10 Essential (primary) hypertension; E66.01 Morbid (severe) obesity due to excess calories; Z79.899 Other long term (current) drug therapy; Z90.49 Acquired absence of other specified parts of digestive tract; Z82.49 Family history of ischemic heart disease and other diseases of the circulatory system; Z91.128 Patient's intentional underdosing of medication regimen for other reason; R94.39 Abnormal result of other cardiovascular function study
CPT/HCPCS: 36415; 71045; 78452; 80048; 80053; 80061; 83036; 83690; 83735; 83880; 84443; 84484; 84702; 85025; 85378; 93005; 93017; 93306; 93458; 96372; 96375; 96376; 99152; 99153; 99285; A9500; C1760; C1769; C1887; C1894; G0269; J1644; J1650; J2250; J2470; J2785; J3010; J3490; J7030; J9999; Q0163; Q9967